=== PATIENT | female | born 1995 | race American Indian/Alaskan Native ===

== ENCOUNTER 2018-04-07 14:14 | Emergency (ER) | payer SELFPAY ==
[2018-04-07] MEDS ORDERED: NACL 0.9% 1000 ML 1,000 ML IV ONE (14:55)
[2018-04-07 16:22] LABS: Alanine Aminotransferase 13 units/L (7-56); Albumin 4.1 g/dL (3.9-5); BUN/Creatinine Ratio 16; Blood Urea Nitrogen 13 mg/dL (7-17); Hemolysis Index 3; Lipase 13 units/L (13-60)
[2018-04-07 16:38] LABS: Basophils % (Auto) 0.3 % (0.0-1.8); Eosinophils % (Auto) 0.2 % (0.0-4.3); Hematocrit 35.6 % (30.3-42.9); Lymphocytes # (Auto) 1.5 K/mm3 (1.2-5.4); Lymphocytes % (Auto) 18.4 % (13.4-35.0); Mean Corpuscular HGB Conc 34 % (30-34); Mean Corpuscular Hemoglobin 31 pg (28-32); Mean Corpuscular Volume 92 fl (79-97); Monocytes # (Auto) 0.3 K/mm3 (0.0-0.8); Platelet Count 238 K/mm3 (140-440); Red Blood Count 3.87 M/mm3 (3.65-5.03); Red Cell Distribution Width 14.2 % (13.2-15.2)
[2018-04-07 16:54] LABS: Bilirubin,Urine NEG (Negative); Blood,Urine NEG (Negative); Color,Urine Yellow (Yellow); Granular Casts,Urine 1 /LPF; Hyaline Casts,Urine 1 /LPF; Mucus,Urine FEW /HPF; Urobilinogen,Urine < 2.0 mg/dL (<2.0)
[2018-04-07 17:17] LABS: HCG Qualitative,Urine Negative (Negative)
[2018-04-07 20:31] VITALS: BP 118/68
--- NOTE | 2018-04-07 20:39 | Emergency Department Report ---
ED General Adult HPI - General Chief complaint: Abdominal Pain Stated complaint: ABD/HEAD PAIN/POSSIBLE EAR INFECTION Time Seen by Provider: 04/07/18 20:33 Source: patient Mode of arrival: Ambulatory Limitations: No Limitations - History of Present Illness Initial comments: 23-year-old [place] female comes in with multiple issues. #1 patient reports she's had a headache that's been constant for 2 months that presents with lightheadedness and some photophobia with no nausea no vomiting. She complains of ear pain that is sharp in nature times one week. She complains of abdominal pain that is crampy on and off 3 weeks. She reports she has constipation may have to bowels in a week. She has taken only ibuprofen which she reports has not helped. Patient denies any nausea no vomiting. She admits to vaginal discharge that is abnormal. She denies any vaginal bleeding. Her last menstrual period was 03/31/2018. Patient reports that she has abnormal color of blood ranges from [place] to a light pink for about 2 months. Patient reports no past medical history currently takes no medications on a daily basis and has no known drug allergies. -: week(s) (3 weeks for abdominal cramping), month(s) (2) Location: head, abdomen Consistency: constant (headache, earache), intermittent (abdominal pains) Associated Symptoms: headaches. denies: confusion, chest pain, cough, diaphoresis, fever/chills, loss of appetite, malaise, nausea/vomiting, shortness of breath, syncope, weakness, other - Related Data Previous Rx's Medication Instructions Recorded Last Taken Type Doxycycline [Vibramycin CAP] 100 mg PO Q12HR 10 Days #20 capsule 04/07/18 Unknown Rx metroNIDAZOLE [Metronidazole] 500 mg PO Q8H #21 04/07/18 Unknown Rx Allergies Allergy/AdvReac Type Severity Reaction Status Date / Time No Known Allergies Allergy Verified 04/07/18 20:33 ED Review of Systems ROS: Stated complaint: ABD/HEAD PAIN/POSSIBLE EAR INFECTION Other details as noted in HPI Constitutional: denies: chills, fever Eyes: denies: eye pain, eye discharge, vision change ENT: ear pain Respiratory: denies: cough, shortness of breath, wheezing Cardiovascular: denies: chest pain, palpitations Gastrointestinal: abdominal pain, constipation. denies: nausea, vomiting, diarrhea Genitourinary: discharge Musculoskeletal: denies: back pain, joint swelling, arthralgia Skin: denies: rash, lesions Neurological: headache Psychiatric: depression. denies: anxiety Hematological/Lymphatic: denies: easy bleeding, easy bruising ED Past Medical Hx - Past Medical History Previous Medical History?: No - Surgical History Past Surgical History?: No - Social History Smoking Status: Never Smoker Substance Use Type: None - Medications Home Medications: Home Medications Medication Instructions Recorded Confirmed Last Taken Type Doxycycline [Vibramycin CAP] 100 mg PO Q12HR 10 Days #20 capsule 04/07/18 Unknown Rx metroNIDAZOLE [Metronidazole] 500 mg PO Q8H #21 04/07/18 Unknown Rx ED Physical Exam - General Limitations: No Limitations General appearance: alert, in no apparent distress - Head Head exam: Present: atraumatic, normocephalic - Eye Eye exam: Present: EOMI - ENT ENT exam: Present: mucous membranes moist, TM's normal bilaterally - Neck Neck exam: Present: normal inspection, full ROM. Absent: lymphadenopathy - Respiratory Respiratory exam: Present: normal lung sounds bilaterally. Absent: respiratory distress - Cardiovascular Cardiovascular Exam: Present: regular rate, normal rhythm. Absent: systolic murmur, diastolic murmur, rubs, gallop - GI/Abdominal GI/Abdominal exam: Present: soft, normal bowel sounds. Absent: distended, tenderness - External exam: Present: normal external exam Speculum exam: Present: erythema, vaginal discharge, cervical discharge Bi-manual exam: Present: adnexal tenderness (right) - Extremities Exam Extremities exam: Present: full ROM - Neurological Exam Neurological exam: Present: alert, oriented X3 - Psychiatric Psychiatric exam: Present: normal affect, normal mood - Skin Skin exam: Present: warm, dry, intact, normal color. Absent: rash ED Course Vital Signs 04/07/18 04/07/18 14:50 20:31 Temperature 98.9 F Pulse Rate 79 76 Respiratory 18 Rate Blood Pressure 99/66 Blood Pressure 118/68 [Right] O2 Sat by Pulse 99 98 Oximetry ED Medical Decision Making - Lab Data Result diagrams: 04/07/18 15:45 04/07/18 15:45 - Medical Decision Making Patient has been evaluated by this provider faster. CBC and CMP urinalysis ordered Pelvic exam performed cultures obtained Wet prep many polymorohonuclear cell with greather than 20% clue cells Patient will be treated with Rocephin 250 mg IM, azithromycin 1 g by mouth and discharged home on doxycycline 100 mg twice a day for 10 days and metronidazole 500 mg by mouth every 8 hours 7 days. Discussed with patient is being treated for STD. Discussed the patient she needs to inform her sexual partner that she tested positive for STD she has been treated and they need to be tested and treated as well. Also discussed the patient she needs to follow-up with the health department to have further testing for HIV, syphilis, hepatitis, herpes. Discussed the patient drink alcohol beverages while taking antibiotics. Use condoms and having intercourse and to get tested regular. - Differential Diagnosis cervicitis, vaginitis, gonorrhea, chlamydia, bacterial vaginosis Critical care attestation.: If time is entered above; I have spent that time in minutes in the direct care of this critically ill patient, excluding procedure time. ED Disposition Clinical Impression: Acute gonococcal cystitis, Bacterial vaginosis Disposition: TO HOME OR SELFCARE Is pt being admited?: No Does the pt Need Aspirin: No Condition: Stable Instructions: Bacterial Vaginosis (ED), Sexually Transmitted Diseases (ED), Safe Sex (ED), Gonococcal Urethritis (ED), Abdominal Pain (ED) Additional Instructions: Please complete all antibiotics as prescribed. Please do not drink alcohol while taking antibiotics. Please inform her sexual partner that you have tested positive for STD and that he needs to be treated. I recommend free to follow-up at the health Department to have an HIV test, syphilis test, herpes test, hepatitis tests. Please refrain from having intercourse for 2 weeks and to use condoms when having intercourse. Prescriptions: Doxycycline [Vibramycin CAP] 100 mg PO Q12HR 10 Days #20 capsule metroNIDAZOLE [Metronidazole] 500 mg PO Q8H #21 Referrals: PRIMARY CARE, [Primary Care Provider] - 3-5 Days Forms: STI Treatment and Prevention
[2018-04-07] MEDS ORDERED: BENTYL PO ONE (20:49)
[2018-04-07] MEDS ORDERED: MOTRIN PO ONE (20:49)
[2018-04-07] MEDS ORDERED: XYLOCAINE 1% MPF 5 mL INFILTRATI ONE (21:55)
[2018-04-07] MEDS ORDERED: ROCEPHIN IM ONE (21:55)
[2018-04-07] MEDS ORDERED: ZITHROMAX PO ONE (21:55)
== END 2018-04-07 22:28 | disposition home or self-care (01) ==
LOC: ED 14:14
DX: A54.01 Gonococcal cystitis and urethritis, unspecified (principal); N76.0 Acute vaginitis; B96.89 Other specified bacterial agents as the cause of diseases classified elsewhere; H53.8 Other visual disturbances; H92.09 Otalgia, unspecified ear; K59.00 Constipation, unspecified; F32.9 Major depressive disorder, single episode, unspecified; R10.9 Unspecified abdominal pain
CPT/HCPCS: 36415; 80053; 81001; 81025; 82150; 83690; 85025; 87210; 87591; 96372; 99284; J0696

== ENCOUNTER 2018-07-27 17:13 | Emergency (ER) | payer SELFPAY ==
[2018-07-27 17:33] VITALS: BP 106/62
[2018-07-27 18:08] LABS: Bilirubin,Urine NEG (Negative); Blood,Urine NEG (Negative); Color,Urine Yellow (Yellow); Mucus,Urine FEW /HPF; Protein,Urine <15 mg/dL mg/dL (Negative); Urobilinogen,Urine < 2.0 mg/dL (<2.0)
--- NOTE | 2018-07-27 18:13 | Emergency Department Report ---
ED Female HPI - General Chief complaint: Abdominal Pain Stated complaint: ABD PAIN/BACK PAIN Time Seen by Provider: 07/27/18 17:54 Source: patient Mode of arrival: Ambulatory Limitations: No Limitations - History of Present Illness Initial comments: Patient is a 23-year-old female presents to ED complaining of right-sided flank pain 2 weeks. Patient is also complaining of pain with urination intermittently for the past week. She denies fever assess shows sinus nausea vomiting/abdominal pain this chest pain status post vaginal discharge or vaginal bleeding. - Related Data Previous Rx's Medication Instructions Recorded Last Taken Type Doxycycline [Vibramycin CAP] 100 mg PO Q12HR 10 Days #20 capsule 04/07/18 Unknown Rx metroNIDAZOLE [Metronidazole] 500 mg PO Q8H #21 04/07/18 Unknown Rx Cyclobenzaprine [Flexeril] 10 mg PO QHS #20 tablet 07/27/18 Unknown Rx Ibuprofen [Motrin 800 MG tab] 800 mg PO TID #20 tablet 07/27/18 Unknown Rx Allergies Allergy/AdvReac Type Severity Reaction Status Date / Time No Known Allergies Allergy Verified 04/07/18 20:33 ED Review of Systems ROS: Stated complaint: ABD PAIN/BACK PAIN Other details as noted in HPI Comment: All other systems reviewed and negative ED Past Medical Hx - Past Medical History Previous Medical History?: No - Surgical History Past Surgical History?: No - Social History Smoking Status: Never Smoker Substance Use Type: None, Alcohol - Medications Home Medications: Home Medications Medication Instructions Recorded Confirmed Last Taken Type Doxycycline [Vibramycin CAP] 100 mg PO Q12HR 10 Days #20 capsule 04/07/18 Unknown Rx metroNIDAZOLE [Metronidazole] 500 mg PO Q8H #21 04/07/18 Unknown Rx Cyclobenzaprine [Flexeril] 10 mg PO QHS #20 tablet 07/27/18 Unknown Rx Ibuprofen [Motrin 800 MG tab] 800 mg PO TID #20 tablet 07/27/18 Unknown Rx ED Physical Exam - General Limitations: No Limitations General appearance: alert, in no apparent distress - Head Head exam: Present: atraumatic, normocephalic - Eye Eye exam: Present: normal appearance - ENT ENT exam: Present: mucous membranes moist - Neck Neck exam: Present: normal inspection - Respiratory Respiratory exam: Present: normal lung sounds bilaterally. Absent: respiratory distress - Cardiovascular Cardiovascular Exam: Present: regular rate, normal rhythm. Absent: systolic murmur, diastolic murmur, rubs, gallop - GI/Abdominal GI/Abdominal exam: Present: soft, normal bowel sounds. Absent: distended, tenderness, guarding, rebound - Extremities Exam Extremities exam: Present: normal inspection - Back Exam Back exam: Present: normal inspection - Neurological Exam Neurological exam: Present: alert, oriented X3 - Psychiatric Psychiatric exam: Present: normal affect, normal mood - Skin Skin exam: Present: warm, dry, intact, normal color. Absent: rash ED Course Vital Signs 07/27/18 17:29 Temperature 98.1 F Pulse Rate 60 Respiratory 16 Rate Blood Pressure 106/62 O2 Sat by Pulse 100 Oximetry ED Medical Decision Making - Medical Decision Making 23-year-old male presents with flank pain/myalgia ED course: Urinalysis is negative for urinary tract infection, negative for bacteria, leukocyte esterase and nitrite I discussed this findings with the patient. Patient is in no acute distress, patient also has on instructions were given to him. He had on exam for ED stay. Critical care attestation.: If time is entered above; I have spent that time in minutes in the direct care of this critically ill patient, excluding procedure time. ED Disposition Clinical Impression: Flank pain, Myalgia Disposition: -01 TO HOME OR SELFCARE Is pt being admited?: No Does the pt Need Aspirin: No Condition: Stable Instructions: Musculoskeletal Pain (ED), Flank Pain (ED) Additional Instructions: Make sure to follow up with the primary care physician as discussed. Take all your medications as you've been prescribed. If you have any worsening symptoms or develop new symptoms please return to ED immediately. Prescriptions: Cyclobenzaprine [Flexeril] 10 mg PO QHS #20 tablet Ibuprofen [Motrin 800 MG tab] 800 mg PO TID #20 tablet Referrals: KATARINA YANG MD [Primary Care Provider] - 3-5 Days Forms: Work/School Release Form(ED) Time of Disposition: 18:36
[2018-07-27 18:15] LABS: HCG Qualitative,Urine Negative (Negative)
[2018-07-27] MEDS ORDERED: IBUPROFEN PO ONE (18:31)
== END 2018-07-27 19:20 | disposition home or self-care (01) ==
LOC: ED 17:13
DX: R10.9 Unspecified abdominal pain (principal); M79.18 Myalgia, other site; R30.0 Dysuria; R11.2 Nausea with vomiting, unspecified
CPT/HCPCS: 81001; 81025; 87086

== ENCOUNTER 2018-09-28 16:10 | Emergency (ER) | payer MEDICAID, OTHER ==
[2018-09-28 17:13] VITALS: BP 118/65
[2018-09-28] MEDS ORDERED: TYLENOL PO ONE (17:14)
[2018-09-28] MEDS ORDERED: TYLENOL ONE (17:17)
[2018-09-28 17:42] LABS: Basophils % (Auto) 0.3 % (0.0-1.8); Eosinophils % (Auto) 0.1 % (0.0-4.3); Hematocrit 36.4 % (30.3-42.9); Hemoglobin 12.3 gm/dl (10.1-14.3); Lymphocytes # (Auto) 0.8 K/mm3 (1.2-5.4); Lymphocytes % (Auto) 9.2 % (13.4-35.0); Mean Corpuscular HGB Conc 34 % (30-34); Mean Corpuscular Volume 90 fl (79-97); Monocytes # (Auto) 0.6 K/mm3 (0.0-0.8); Monocytes % (Auto) 7.2 % (0.0-7.3); Platelet Count 229 K/mm3 (140-440); Red Blood Count 4.05 M/mm3 (3.65-5.03); Red Cell Distribution Width 14.5 % (13.2-15.2)
[2018-09-28 18:27] LABS: BUN/Creatinine Ratio 9; Blood Urea Nitrogen 8 mg/dL (7-17); Calcium 9.1 mg/dL (8.4-10.2); Hemolysis Index 5
--- NOTE | 2018-09-28 18:48 | Emergency Department Report ---
Blank Doc - Documentation Documentation: 23 y o f presents wcc of fever, generalized body aches and hills with coughing, states mid chest pain with coughing. Labs ordered, x-ray ordered, Patient evaluated by physician
[2018-09-28 19:11] LABS: HCG Qualitative,Urine Negative (Negative)
[2018-09-28 19:13] LABS: Bilirubin,Urine NEG (Negative); Blood,Urine NEG (Negative); Color,Urine Colorless (Yellow); Protein,Urine <15 mg/dL mg/dL (Negative); Urobilinogen,Urine < 2.0 mg/dL (<2.0)
--- NOTE | 2018-09-28 19:51 | Emergency Department Report ---
- General Chief Complaint: Upper Respiratory Infection Stated Complaint: CHEST/BODY PAIN,HEADACH Time Seen by Provider: 09/28/18 19:33 Source: patient Mode of arrival: Ambulatory Limitations: No Limitations - History of Present Illness Initial Comments: Patient is a 23-year-old female that presents emergency room with cough, fever, body aches and chills. Patient states that her cough is productive with yellow sputum. Patient states she has taken Tylenol with some relief. Patient denies abdominal pain. Patient denies nausea vomiting. Patient denies headache. Patient denies blurred vision and dizziness. Patient denies having a flu vaccine this year. Patient denies sick contacts. MD Complaint: fever, cough, rhinorrhea -: Sudden Severity: severe Quality: stabbing Consistency: constant Improves With: OTC cold medicine, rest Worsens With: activity Associated Symptoms: fever, chills, myalgias, rhinorrhea, nasal congestion, cough, chest pain. denies: diaphoresis, headache, shortness of breath, abdominal pain, nausea, vomiting, diarrhea, rash, confusion, right sweats, weight loss, epistaxis, hoarseness, ear pain - Related Data Previous Rx's Medication Instructions Recorded Last Taken Type Doxycycline [Vibramycin CAP] 100 mg PO Q12HR 10 Days #20 capsule 04/07/18 Unknown Rx metroNIDAZOLE [Metronidazole] 500 mg PO Q8H #21 04/07/18 Unknown Rx Cyclobenzaprine [Flexeril] 10 mg PO QHS #20 tablet 07/27/18 Unknown Rx Ibuprofen [Motrin 800 MG tab] 800 mg PO TID #20 tablet 07/27/18 Unknown Rx Baloxavir Marboxil [Xofluza] 40 mg PO ONCE #2 tablet 09/28/18 Unknown Rx Allergies Allergy/AdvReac Type Severity Reaction Status Date / Time No Known Allergies Allergy Verified 09/28/18 17:11 ED Review of Systems ROS: Stated complaint: CHEST/BODY PAIN,HEADACH Other details as noted in HPI Constitutional: chills, fever, malaise Eyes: denies: eye pain, eye discharge, vision change ENT: denies: ear pain, throat pain Respiratory: cough. denies: shortness of breath, wheezing Cardiovascular: chest pain. denies: palpitations Endocrine: no symptoms reported Gastrointestinal: denies: abdominal pain, nausea, diarrhea Genitourinary: denies: urgency, dysuria, discharge Musculoskeletal: denies: back pain, joint swelling, arthralgia Skin: denies: rash, lesions Neurological: denies: headache, weakness, paresthesias Psychiatric: denies: anxiety, depression Hematological/Lymphatic: denies: easy bleeding, easy bruising ED Past Medical Hx - Past Medical History Previous Medical History?: No - Surgical History Past Surgical History?: No - Family History Family history: no significant - Social History Smoking Status: Never Smoker Substance Use Type: None - Medications Home Medications: Home Medications Medication Instructions Recorded Confirmed Last Taken Type Doxycycline [Vibramycin CAP] 100 mg PO Q12HR 10 Days #20 capsule 04/07/18 Unknown Rx metroNIDAZOLE [Metronidazole] 500 mg PO Q8H #21 04/07/18 Unknown Rx Cyclobenzaprine [Flexeril] 10 mg PO QHS #20 tablet 07/27/18 Unknown Rx Ibuprofen [Motrin 800 MG tab] 800 mg PO TID #20 tablet 07/27/18 Unknown Rx Baloxavir Marboxil [Xofluza] 40 mg PO ONCE #2 tablet 09/28/18 Unknown Rx ED Physical Exam - General Limitations: No Limitations General appearance: alert, in no apparent distress - Head Head exam: Present: atraumatic, normocephalic - Eye Eye exam: Present: normal appearance - ENT ENT exam: Present: mucous membranes moist, TM's normal bilaterally - Expanded ENT Exam Expanded Ear exam: Present: normal external inspection Mouth exam: Present: normal external inspection Throat exam: Positive: other (mild erythema noted to the oropharynx and no exudate noted) - Neck Neck exam: Present: normal inspection - Respiratory Respiratory exam: Present: normal lung sounds bilaterally. Absent: respiratory distress, wheezes, rales, rhonchi - Cardiovascular Cardiovascular Exam: Present: regular rate, normal rhythm. Absent: systolic murmur, diastolic murmur, rubs, gallop - GI/Abdominal GI/Abdominal exam: Present: soft, normal bowel sounds. Absent: distended, tenderness, guarding - Rectal Rectal exam: Present: deferred - Extremities Exam Extremities exam: Present: normal inspection - Back Exam Back exam: Present: normal inspection - Neurological Exam Neurological exam: Present: alert, oriented X3 - Psychiatric Psychiatric exam: Present: normal affect, normal mood - Skin Skin exam: Present: warm, dry, intact, normal color. Absent: rash ED Course Vital Signs 09/28/18 09/28/18 17:11 17:22 Temperature 102.7 F H Pulse Rate 114 H Respiratory 20 16 Rate Blood Pressure 118/65 O2 Sat by Pulse 98 Oximetry - Reevaluation(s) Reevaluation #1: Agents findings are consistent with fluids infection. Discussed all results with patient. Discussed clinical impression patient. Discussed diagnosis with patient. Discussed discharge instructions the patient. Patient voiced understanding of all discussions. Patient will be treated with a influenza treatment 09/28/18 19:51 ED Medical Decision Making - Lab Data Result diagrams: 09/28/18 17:34 09/28/18 17:34 - Radiology Data Radiology results: image reviewed interpreted by me: No acute findings on chest x-ray - Medical Decision Making Patient is a 23-year-old female that presents emergency room with complaints of URI symptoms. Patient's finding consistent with influenza. Patient will be treated with an influenza treatment. Patient given URI treatment as well. Patient stable for discharge. Patient will be discharged home. Patient to res t. Patient instructed to stay off work until she is fever free for 24 hours - Differential Diagnosis URI. Flu. Critical care attestation.: If time is entered above; I have spent that time in minutes in the direct care of this critically ill patient, excluding procedure time. ED Disposition Clinical Impression: URI due to influenza Fever Qualifiers: Fever type: unspecified Qualified Code(s): R50.9 - Fever, unspecified Disposition: DC-01 TO HOME OR SELFCARE Is pt being admited?: No Does the pt Need Aspirin: No Condition: Stable Instructions: Fever in Adults (ED), Influenza (ED) Additional Instructions: Patient is to follow up with her primary care in 2-3 days. Patient take Tylenol or ibuprofen when necessary for pain . Patient to return to ER if condition worsens. Patient take meds as directed. Patient increase water. Prescriptions: Baloxavir Marboxil [Xofluza] 40 mg PO ONCE #2 tablet Referrals: PRIMARY CARE, [Primary Care Provider] - 2-3 Days Forms: Work/School Release Form(ED) Time of Disposition: 19:56
--- NOTE | 2018-09-28 21:22 | XRay Report ---
PROCEDURE: XR CHEST ROUTINE 2V TECHNIQUE: PA and lateral views of the chest were obtained. HISTORY: cough,fever,malaise COMPARISONS: FINDINGS: Heart size upper normal. Pulmonary vasculature not distended. No evidence of pulmonary edema or pleur al effusion. No acute infiltrates or masses or pneumothorax visualized. No acute bone abnormalities a re visualized. IMPRESSION: Heart size upper normal. No acute abnormalities are identified. No focal infiltrates are identified.. This document is electronically signed by Darci Mallory MD., September 28 2018 09:20:20 PM ET
== END 2018-09-28 20:36 | disposition home or self-care (01) ==
LOC: ED 16:10
DX: J10.1 Influenza due to other identified influenza virus with other respiratory manifestations (principal)
CPT/HCPCS: 36415; 71046; 80048; 81001; 81025; 85025